=== PATIENT | female | born 1980 | race Caucasian/White ===

== ENCOUNTER → 2020-02-05 10:45 | Outpatient (BNVA) | payer BC, SELFPAY | PROVIDERS: PCP Family Medicine; Visit Provider Internal Medicine Rheumatology | DX: M79.10 Myalgia, unspecified site (principal); R76.8 Other specified abnormal immunological findings in serum; Z79.899 Other long term (current) drug therapy; M54.5 Low back pain; R00.2 Palpitations; R42 Dizziness and giddiness; M54.12 Radiculopathy, cervical region | CPT/HCPCS: 81001; 85025 ==

== ENCOUNTER 2020-02-05 10:53 | Outpatient (CLI) | payer BC, SELFPAY ==
--- NOTE | 2020-02-05 11:02 | XR_ITS ---
WS: [id number] PELVIS TECHNIQUE: 1 view(s) of the pelvis CLINICAL INFORMATION: low back pain COMPARISON: None. FINDINGS: IUD projected over the pelvis. Visualized hips are normal in appearance. Normal acetabulum. Lower lumbar spine is normal. Inferior a nd superior pubic rami are normal. Normal iliopectineal line. Sacrum is normal in appearance. XR/XR pelvis 1-2V* [id number] IMPRESSION: 1. IUD projected over the midline pelvis. This can be further evaluated with u ltrasound to evaluate positioning 2. Normal bony pelvis and visualized hips.
== END 2020-02-05 10:54 | disposition home or self-care (01) ==
LOC: RADWPI 11:00
PROVIDERS: PCP Family Medicine; Visit Provider Internal Medicine Rheumatology
DX: Z97.5 Presence of (intrauterine) contraceptive device; R76.8 Other specified abnormal immunological findings in serum; M79.10 Myalgia, unspecified site; Z79.899 Other long term (current) drug therapy; R00.2 Palpitations; R42 Dizziness and giddiness; M54.12 Radiculopathy, cervical region; M54.5 Low back pain
CPT/HCPCS: 36415; 72170; 80076; 82085; 82306; 82550; 82565; 85651; 86140; 99204